=== PATIENT | female | born 1960 | race African-American/Black ===

== ENCOUNTER 2016-07-04 06:04 | Observation (INO) | payer MEDICARE, OTHER ==
--- NOTE | ~2016-07-04 | TH ---
Unit #: [id number] #: [id number] Patient: SANCHEZ PRETTY [id number] [facility]. [address] [address] [id number] MR#: [id number] NAME: SANCHEZ PRETTY : 1960 SEX: F STUDY DATE/TIME: 07/04/2016 UNIT: [facility] ROOM: 32831 STUDY DESCRIPTION: Exercise stress test - Nuclear Attending Physician: Landon Case M.D. Primary Care Physician: No Primary Care Physician CARDIOLOGY REPORT PROCEDURE PERFORMED Exercise Cardiolite stress test - Nuclear portion. PROCEDURE Using technetium 99m-labeled Cardiolite, rest and stress SPECT images were obtained. Multiple SPECT images were obtained in various views, including horizontal and vertical long axis and short axis views of the left ventricle. Images were obtained by gated SPECT method. The patient was administered 10.07 mCi of Cardiolite at rest. The patient was administered 28.2 mCi of Cardiolite at peak exercise. Total exercise time is 8 minutes. On the stress images, there is normal perfusion noted. The rest images show normal perfusion. Comparing the rest and stress images, there is no stress-induced ischemia noted. The left ventricular ejection fraction is calculated to be 68%. There is no focal wall motion abnormality seen. CONCLUSION 1. No stress-induced ischemia noted. 2. The left ventricular ejection fraction is calculated to be 68%. 3. There is no focal wall motion abnormality seen. 4. Normal exercise Cardiolite stress test. Dictated by... Annika Valdez TD: 07/04/2016 15:12 JOB #: [id number] CARDIOLOGY REPORT X Priyanka Donald MD <ELECTRONICALLY SIGNED> 12/03/16 1428 CARDIOLOGY REPORT
--- NOTE | ~2016-07-04 | EKG ---
PATIENT: SANCHEZ PRETTY UNIT #: [id number] Ventricular Rate: 101 BPM Atrial Rate: 101 BPM P-R Interval: 166 ms QRS Duration: 74 ms Q-T Interval: 308 ms QTC Calculation(Bezet): 399 ms P [place]: 52 degrees Calculated R [place]: 15 degrees Calculated T [place]: -6 degrees Diagnosis Line: Sinus tachycardia Diagnosis Line: Nonspecific T wave abnormality Diagnosis Line: Abnormal ECG Diagnosis Line: No previous ECGs available Diagnosis Line: Confirmed by ABA LOCK MD ([id number]) on Diagnosis Line: 07/04/2016 10:51:36 PM INTERPRETING MD: SENDY
--- NOTE | ~2016-07-04 | HP ---
Unit #: [id number] #: [id number] Patient: SANCHEZ PRETTY [id number] [address] [place], [place] [address] [id number] I MR#: [id number] NAME: SANCHEZ PRETTY ROOM: 15352 Age: 55 Sex: F Admission Date: 07/04/2016 : 1960 Attending Physician: Landon Case M.D. Primary Care Physician: No Primary Care Physician HISTORY AND PHYSICAL HISTORY OF PRESENT ILLNESS This is a 55-year-old -Congolese female who presented to the emergency room with a complaint of chest pain. She states she was awakened at 4:00 a.m. with mid sternal chest heaviness and left arm numbness with tingling in her hand. She had slight dyspnea but no diaphoresis, nausea, or vomiting. Her pain waxed and waned, lasted for about 5 seconds but continued to be ongoing. She came to the emergency room for evaluation where initial troponin was negative. Electrocardiogram shows no acute ischemic changes. She has risk factors for ischemic heart disease including hypertension, hyperlipidemia, and mild obesity. She had a stress test because of palpitation in 11/2015 that she states was normal. No details are available. She states she is recently active, where she is able to run three miles a day without any discomfort. The patient was recently diagnosed with bronchitis two weeks ago that was treated with inhaler. She has been doing a lot of activities lately, caring for her mother. PAST MEDICAL HISTORY 1. Stress test 11/2015, no details available. 2. Hypertension. 3. Hyperlipidemia. 4. Palpitations. 5. History of TIA. 6. Cervical disc disease. 7. Anxiety. 8. Nonsmoker. PAST SURGICAL HISTORY 1. Hysterectomy. 2. Appendectomy. 3. Tubal ligation. 4. Colon resection for bowel obstruction. SOCIAL HISTORY The patient works for [employer]. She has been taking care of her mother. She has never smoked. She denies illicit drug and alcohol use. FAMILY HISTORY Mother is currently living and has a history of valvular heart disease with valve replacement. Father from prostate cancer. ALLERGIES Prednisone. Unit #: [id number] #: [id number] Patient: SANCHEZ PRETTY HOME MEDICATIONS 1. Seroquel 100 mg b.i.d. 2. Nexium 20 mg daily. 3. Lipitor 80 mg daily. 4. Prozac 20 mg daily. 5. Norvasc 10 mg daily. 6. Clonidine 0.1 mg daily. REVIEW OF SYSTEMS CONSTITUTIONAL: Negative for fever or chills. Reports no weight gain and no weight loss. HEENT: No headache. No visual changes or difficulty with swallowing. No dizziness. CARDIOVASCULAR: Chest discomfort described in HPI. Reports occasional palpitations. No paroxysmal nocturnal dyspnea or orthopnea. Denies syncope or near syncope. RESPIRATORY: Slight dyspnea with chest pain. Had a recent cough with white sputum. No hemoptysis. GASTROINTESTINAL: No abdominal pain, nausea or vomiting. No constipation or melena. EXTREMITIES: Negative for lower extremity edema. PHYSICAL EXAMINATION VITAL SIGNS: Blood pressure 146/90, heart rate 84, temperature 98.3, BMI 32. GENERAL: Pleasant, 55-year-old, mildly obese, -Congolese female who is in no acute distress. NEUROLOGIC: She is awake, alert and oriented without focal weaknesses. NECK: Tracheal is midline. No thyromegaly or lymphadenopathy. No jugular venous distention. HEART: S1 and S2. Heart sounds are normal. No murmurs, no rubs, no clicks. Regular rate and rhythm. LUNGS: Clear to auscultation without rales, rhonchi or wheezes. ABDOMEN: Soft, nontender, bowel sounds are present. No hepatomegaly. EXTREMITIES: Pedal pulses are palpable without leg edema. SKIN: Warm and dry. DIAGNOSTIC STUDIES LABORATORY STUDIES: Glucose 107, BUN 9, creatinine 0.8, sodium 132, potassium 3.2, cholesterol 174, triglycerides 228, LDL 81, HDL 47. CK-MB 1.6, troponin less than 0.05 x2. Hemoglobin 12.0, hematocrit 37.8, platelet count 287, white count 7.5. IMAGING STUDIES: Chest x-ray shows no active disease. CARDIOVASCULAR: Electrocardiogram - sinus tachycardia, rate of [address] wave abnormality. IMPRESSION 1. Chest pain, atypical for significant heart disease. 2. Hypertension. 3. Hyperlipidemia. 4. Obesity. 5. History of TIA. PLAN 1. The patient's chest pain is atypical for ischemic heart disease. Troponin is negative. There is no acute electrocardiogram changes. Unit #: [id number] #: [id number] Patient: SANCHEZ PRETTY The patient denies any leg weakness, blurred vision or speech impairment. 2. Encourage the patient to exercise for weight loss. 3. Potassium would be supplemented. 4. No arrhythmias was noted on telemetry. Will check TSH. 5. If the patient's stress test is negative, the patient will be discharged home. 6. Followup of the primary care physician in two to four weeks. Dictated by Taz Burroughs A.P.R.N. for Annika Bear/braden TD: 07/04/2016 11:43 JOB #: [id number] CC: [facility] Francine Sanchez Aprn HISTORY AND PHYSICAL X Taz Burroughs APRN X HISTORY AND PHYSICAL
--- NOTE | ~2016-07-04 | CR72 ---
[facility] A Service of [facility] RADIOLOGY TEXT RESULTS PATIENT: SANCHEZ PRETTY LOCATION: [facility] [address]-03 : [birth year] UNIT #: [id number] AGE: [address]: Landon Case MD SEX: F ORDER DR: [id number] [facility] [address] [facility]. [place], [place] [address] [id number] I MR#: [id number] Acc #: [id number] NAME: SANCHEZ PRETTY : 1960 SEX: F STUDY DATE/TIME: 07/04/2016 5:55 UNIT: [facility] ROOM: 42173 STUDY DESCRIPTION: CR Chest Single View Portable Attending Physician: Landon Case M.D. Ordering Physician: Edilson Carlos D.O. Primary Care Physician: Primary Care Physician No MEDICAL IMAGING REPORT This report is preliminary unless electronic signature is present EXAM Frontal chest 07/04/2016 INDICATIONS Chest pain and shortness of air that started last night. Hypertension. TECHNIQUE Frontal chest was performed. No comparisons. Cardiac silhouette unremarkable. Vascularity normal. Lungs clear. No pneumothorax. IMPRESSION 1. Negative chest. We have no comparisons. Dictated by... Joao Mendez M.D. THIS IS AN ELECTRONICALLY VERIFIED REPORT Joao Mendez M.D. at 07/04/2016 9:45 AM TEE/ian TD: 07/04/2016 07:48 JOB #: [id number] MEDICAL IMAGING REPORT COPY
--- NOTE | ~2016-07-04 | ST ---
Unit #: [id number] #: [id number] Patient: SANCHEZ PRETTY [id number] [facility]. [address] [address] [id number] I MR#: [id number] NAME: SANCHEZ PRETTY : 1960 SEX: F STUDY DATE/TIME: 07/04/2016 UNIT: [facility] ROOM: 71960 STUDY DESCRIPTION: Attending Physician: Landon Case M.D. Primary Care Physician: No Primary Care Physician CARDIOLOGY REPORT EXAM EKG portion of treadmill Cardiolite stress test. REASON FOR TEST Chest heaviness that radiates to the left arm with associated shortness of breath and lightheadedness. FINDINGS Baseline EKG shows sinus rhythm with a rate of 73 with slow R-wave progression. The patient exercised according to Gonsalo protocol for a total exercise time of eight minutes. The patient's resting heart rate was 73 with a maximum heart rate of 162 which represents 97% of the maximum age-predicted heart rate. The patient's resting blood pressure was 135/85 with a maximum blood pressure of 182/70. The patient had no sustained arrhythmias. There was no ectopy and no changes to the ST segment during the test to indicate ischemia. The patient had no chest pain, only some mild shortness of breath towards the end of the test in the third stage. The patient tolerated activity well with no complications. Test was stopped due to max exertion and some shortness of breath. IMPRESSION 1. No sustained arrhythmias. 2. No ectopy noted. 3. No changes of ST segment. 4. Patient tolerated well with no complaints of chest pain. 5. Please correlate with Cardiolite imaging. Dictated by... DELBERT Rojas TD: 07/04/2016 13:42 JOB #: [id number] Unit #: [id number] #: [id number] Patient: SANCHEZ PRETTY CARDIOLOGY REPORT X CARDIOLOGY REPORT
[2016-07-04 05:11] LABS: POC - CKMB 1.1 ng/mL (0.0-7.9); POC - TROPONIN <0.05 ng/mL (<=0.05)
[2016-07-04 05:12] LABS: BASOPHIL% 0.4 % (0-2.5); EOSINOPHIL# 0.3 X10e3 (0-0.7); HEMATOCRIT 37.8 % (35.0-45.0); LYMPHOCYTE% 27.1 % (17.0-45.0); MEAN CELL VOLUME 80.4 FL (83-96); MEAN CORPUSCULAR HEMOGLOBIN 25.4 PG (28-34); MEAN CORPUSCULAR HGB CONC 31.6 g/dL (30-36); MEAN PLATELET VOLUME 8.5 FL (6.5-11.5); MONOCYTE# 0.6 X10e3 (0-1.0); MONOCYTE% 8.6 % (3.0-12.0); NEUTROPHIL# 4.5 X10e3 (1.5-7.1); NEUTROPHIL% 59.9 % (40-75); PLATELET COUNT 287 X10e3 (140-420); RED CELL DISTRIBUTION WIDTH 15.1 % (11.0-15.5); WHITE BLOOD COUNT 7.5 X10e3 (4.0-10.5)
[2016-07-04 05:34] LABS: DIFF IND NO
[2016-07-04 05:37] LABS: ALBUMIN SERUM 3.7 g/dL (3.5-5.0); ALKALINE PHOSPHATASE 66 U/L (32-92); ALT (SGPT) 26 U/L (10-40); AST (SGOT) 20 U/L (10-42); BILIRUBIN,TOTAL 0.5 mg/dL (0.2-2.0); BLOOD UREA NITROGEN 9 mg/dL (9-23); BUN/CREATININE RATIO 11.25; CALCIUM SERUM 9.3 mg/dL (8.4-10.2); CARBON DIOXIDE 29 mmol/L (22-31); CHLORIDE 106 mmol/L (100-111); CREATININE SERUM 0.8 mg/dL (0.6-1.4); GLOM FILT RATE Estimated ABOVE60 mL/min (>60); GLUCOSE FASTING 107 mg/dL (70-110); POTASSIUM 3.2 mmol/L (3.5-5.1); PROTEIN TOTAL SERUM 6.8 g/dL (6.0-8.3); SODIUM 142 mmol/L (135-145)
[2016-07-04 05:38] LABS: PARTIAL THROMBOPLASTIN TIME 24.5 SECONDS (23.5-31.3); PROTHROMBIN TIME (PATIENT) 10.3 SECONDS (9.6-11.5)
[2016-07-04 05:39] LABS: BILIRUBIN, DIRECT <0.1 mg/dL (0.0-0.2); BILIRUBIN,INDIRECT 0.4 mg/dL (0.0-0.9)
[2016-07-04 06:57] LABS: POC - CKMB 1.6 ng/mL (0.0-7.9); POC - TROPONIN <0.05 ng/mL (<=0.05)
[2016-07-04] MEDS ORDERED: NEXIUM20 MG PO (06:58)
[2016-07-04] MEDS ORDERED: SEROQUEL PO (06:58)
[2016-07-04] MEDS ORDERED: LIPITOR80 MG PO (06:59)
[2016-07-04] MEDS ORDERED: NORVASC10 MG PO (07:00)
[2016-07-04] MEDS ORDERED: PROZAC PO (07:00)
[2016-07-04] MEDS ORDERED: CLONIDINE HCL0.1 MG PO (07:01)
[2016-07-04 08:45] LABS: URINE SOURCE CLEAN CATCH
[2016-07-04 09:01] LABS: URINE APPEARANCE SL HAZY; URINE BILIRUBIN NEG (NEG); URINE BLOOD NEG (NEG); URINE COLOR YELLOW; URINE GLUCOSE NORM (NORM); URINE KETONE NEG (NEG); URINE LEUKOCYTE ESTERASE NEG (NEG); URINE NITRATE NEG (NEG); URINE PROTEIN 1+ (NEG); URINE UROBILINOGEN NORM (NORM)
[2016-07-04 09:38] LABS: CULTURE INDICATED? YES; URBCS1 AUWI 0-2 /[HPF] (0-2); URINE BACTERIA AUWI 1+ (NEGATIVE); UWBCS1 AUWI 0-2 (0-5)
[2016-07-04 09:41] LABS: URINE AMORPHOUS SEDIMENT AMORP URATES; URINE SQUAMOUS EPITHELIAL CELL FEW /[HPF]
[2016-07-04 10:06] LABS: CHOLESTEROL 174 mg/dL (0-200); HDL CHOLESTEROL 47 mg/dL (35-95); LDL CHOLESTEROL 81 mg/dL ([, -130]); LDL/HDL RATIO 2 RATIO (0-4); TRIGLYCERIDES 228 mg/dL (10-160)
[2016-07-04 15:12] LABS: %MB 1.3 % (0.0-4.0); MB 1.5 ng/ml
== END 2016-07-04 15:40 | disposition home or self-care (01) ==
LOC: CED 06:04 → CEDOF 06:07
PROVIDERS: Emergency Medicine; Internal Medicine Advanced Heart Failure and Transplant Cardiology
DX: R07.89 Other chest pain (principal); I10 Essential (primary) hypertension; E78.5 Hyperlipidemia, unspecified; F41.9 Anxiety disorder, unspecified; Z79.899 Other long term (current) drug therapy; Z90.710 Acquired absence of both cervix and uterus; Z98.51 Tubal ligation status; Z88.8 Allergy status to other drugs, medicaments and biological substances; Z86.73 Personal history of transient ischemic attack (TIA), and cerebral infarction without residual deficits; Z80.42 Family history of malignant neoplasm of prostate; Z82.49 Family history of ischemic heart disease and other diseases of the circulatory system
CPT/HCPCS: 36415; 71010; 78452; 80048; 80061; 80076; 81003; 82550; 82553; 84443; 84484; 85025; 85610; 85730; 87086; 93005; 93017; 99285; A9500; G0378